=== PATIENT | male | born 1965 | race Caucasian/White ===

== ENCOUNTER → 2020-09-15 | Outpatient (CLI) | payer OTHER ==
[2020-09-15 22:01] LABS: African American GFR (CKD) 118.2 (60.0-200.0); Calcium 9.6 mg/dL (8.7-10.3); Carbon Dioxide 29.6 mmol/L (21.6-31.8); Phosphorus 3.7 mg/dL (2.4-5.1); Uric Acid 3.2 mg/dL (3.7-8.7)
== END | disposition home or self-care (01) ==
LOC: LABWHC1 12:25
PROVIDERS: ATTEND Surgery
DX: N40.0 Benign prostatic hyperplasia without lower urinary tract symptoms (principal); N20.0 Calculus of kidney; N20.1 Calculus of ureter
CPT/HCPCS: 36415; 82310; 82374; 82435; 82565; 83970; 84100; 84153; 84550